=== PATIENT | male | born 1955 | race Caucasian/White ===

== ENCOUNTER 2016-12-12 18:09 | Emergency (ER) | payer MEDICAID ==
[~2016-12-12] VITALS: Ht 182.9 cm; Wt 81.6 kg
[2016-12-12 18:31] LABS: HEMOGLOBIN 14.2 g/dL (14.1-18.0); LYMPH # 3.9 K/mm3 (0.7-4.5); LYMPH % 29.2 % (10-50)
[2016-12-12 18:54] LABS: URINE BILIRUBIN - DIPSTICK NEGATIVE (NEG); URINE BLOOD NEGATIVE (NEG)
--- NOTE | 2016-12-12 18:54 | Emergency Room Report ---
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 N Clinical Suspician of Infection? N Mental Status: 2 - Mildly Altered Sepsis Risk:Low Sepsis Risk Have you (or family members/close friends) recently traveled outside the [place]? N If Yes, where/when: Have you had exposure to infectious disease within the past month? N TB? Other? Specify: 61 years old white male with history of seizure when drinking VODKA. He was sitting at the [facility] AND went back to the house and fell on a couch with seizure -like activity. He he denies trauma and saw girlfriends. He denies any complaint at the present time is alert and oriented to place and person not the day. Source patient, RN notes reviewed, family ALLERGIES Coded Allergies: No Known Allergies (12/12/16) History Medical History Immunization Hx DT/Tetanus Unknown Surgical Hx Previous Surgery?N Social History Smoking Hx Smoker: Current Every Day Smoker Tobacco: Yes Type Cigarettes Alcohol Alcohol: Yes Review of Systems All Other Systems Reviewed and Negative Constitutional no symptoms reported Eyes no symptoms reported ENT no symptoms reported. Respiratory no symptoms reported Cardiovascular no symptoms reported Gastrointestinal no symptoms reported Genitourinary no symptoms reported. Musculoskeletal no symptoms reported Skin no symptoms reported Psychiatric/Neurological see HPI, seizure Physical Exam Vital Signs Vital Signs Date Time Temp Pulse Resp B/P Pulse O2 O2 Flow FiO2 Ox Delivery Rate 12/12 1918 102 28 143/88 95 12/12 1811 97.0 67 18 149/67 97 - WBC >12,000 or <4,000 or 10% bands? 2 or more SIRS Criteria Met? B/P:149/67 MAP:94 Creatinine >2.0? UA output<0.5ml/kg/hr for 2 hrs? Platelet count >100,000? Lactate >2.0mmol/1? INR >1.2 or PTT > than 60 sec? Evidence of Organ Dysfunction? Provider documented clinical suspician of infection? N Sepsis Criteria Count: 0 Sepsis Risk: Low Sepsis Risk General Appearance normal appearance, WD/WN Eye Exam - bilateral eye normal exam, bilateral eye PERRL, bilateral eye EOMI Ear, Nose, Throat hearing grossly normal, normal ENT inspection Neck normal inspection, non-tender, supple, full range of motion Respiratory Status Yes: trachea midline, chest symmetrical, non tender chest. No: respiratory distress. Lung Sounds bilateral: normal breath sounds, lungs clear. 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 No Results/Orders Laboratory Tests 12/12/16 1835: Opiates Screen NEGATIVE, Urine Methadone Screen NEGATIVE, Barbiturates NEGATIVE, Phencyclidine Screen NEGATIVE, Amphetamines Screen NEGATIVE, Benzodiazepines Screen NEGATIVE, Cocaine Screen NEGATIVE, Marijuana (THC) Screen NEGATIVE, Urine Color YELLOW, Urine Appearance CLEAR, Urine pH 6.5, Ur Specific [place] 1.015, Urine Protein TRACE H, Urine Ketones TRACE H, Urine Blood NEGATIVE, Urine Nitrate NEGATIVE, Urine Bilirubin NEGATIVE, Urine Urobilinogen 1.0, Ur Leukocyte Esterase NEGATIVE, Urine WBC 3-5, Amorphous Sediment 1+, Urine Mucus TRACE, Urine Glucose NEGATIVE 12/12/161809: Magnesium 2.3 H 12/12/161809: Folate Pending, Alcohols 37 12/12/161809: Sodium 126 L, Potassium 3.5, Chloride 90 L, Carbon Dioxide 20 L, BUN 6 L, Creatinine 0.8, Estimated Creat Clear 109, Estimated GFR (MDRD) 98, Glucose 94, Calcium 9.1, Total Bilirubin 0.6, AST 65 H, ALT 26, Alkaline Phosphatase 171 H , Creatine Kinase 80, CK-MB (CK-2) Rel Index 0.8, CK and CKMB Interp 0.6, Troponin I < 0.02, Total Protein 8.0, Albumin 3.5, Globulin 4.5 H, Albumin/ Globulin Ratio 0.8 L, WBC 13.3 H, RBC 4.19 L, Hgb 14.2, Hct 42.9, MCV 102.3 H, RDW 13.4, Plt Count 410, MPV 7.4, Gran % 58.3, Gran # 7.7, Lymphocytes % 29.2 , Monocytes % 10.0 H, Eosinophils % 1.5, Basophils % 1.0, Lymphocytes # 3.9, Monocytes # 1.3 H, Eosinophils # 0.2, Basophils # 0.1, PUBS MCHC 33.2, MCH 34.0 H, Salicylates 3.9, Acetaminophen 0 L Current Medication Orders Sig/Keith Start time Last Medication Dose Route Stop Time Status Admin Miscellaneous 0 .STK-MED ONE 12/12 1949 DC Medication XX Sodium Chloride 1,000 ML .STK-MED ONE 12/12 1949 DC IV Folic Acid 1 MG ONCE ONE 12/12 1944 DC 12/12 PO 12/12 Miscellaneous 1 UNIT ONCE ONE 12/12 1944 DC 12/12 Medication XX 12/12 Multivitamins 10 ML .Q6H42M 12/12 1944 AC 12/12 Magnesium Sulfate 2 GM IV 12/13 Thiamine HCl 100 MG Lactated Ringer's 1,000 ML Sodium Chloride 10 ML PRN PRN 12/12 1829 AC IV 12/13 1818 Orders Procedure Date/time Status DIET-NOTHING BY MOUTH 12/13 B Active CHEST(2 VIEWS-NOT PORTABLE) 12/12 194 Active SALICYLATE 12/12 1826 Complete MAGNESIUM 12/12 1826 Complete FOLIC ACID (FOLATE, SERUM) 12/12 1826 Active Acetaminophen 12/12 1826 Complete ELECTROCARDIOGRAM REQUEST 12/[address] HEAD REQ 12/12 1821 Complete IV SALINE LOCK 12/12 1821 Active URINALYSIS/COMPLETE 12/12 1821 Complete DRUG ABUSE SCREEN (TRIAGE) 12/12 1821 Complete CBC WITH AUTO DIFF 12/12 1821 Complete CARDIAC ENZYMES 12/12 1821 Complete CHEM 12 PROFILE 12/12 1821 Complete ALCOHOL 12/12 1821 Complete 12 LEAD EKG-DAVE (INITIAL) 12/12 UNK Active CM/EKG CM/EKG EKG rate (sinus tachycardia at 113. [place]), sinus tachycardia 1 1330 minutes unifocal PVC is no acute XRAY/CT/US XRAY/CT/US XRAY chest XR interpretation by reviewed by me Xray Results COPD NO ACUTE. Departure Departure Time of Disposition 1931 Disposition Against Medical Advice Clinical Impression Primary Impression: Seizure-like activity Secondary Impressions: Alcohol abuse, Cerebral atrophy, Hyponatremia, Left against medical advice, Leucocytosis, Mastoiditis Condition STABLE Additional Instructions The patient cliamed to be a [employer] but refused to call [place] for admission. His daughter called and told us not to take his beer away,[facility] does not serve beer. I offered him to be admitted for more IVF and further testing but the patient declined , his girl friend kota will co sign AMA form. HE WILL BE GIVEN A PCP LIST FOR HERALTH MAINTENANCE. RETURN IF NEEDED Discharge Counseling Counseled pt/family regarding diagnosis, test results, home care, follow up needs ED Critical Care Critical Care No If Critical Care minutes are documented, the time involved in the performance of seperately reportable procedures was not counted toward critical care time documented. I directly delivered medical care to this critically ill and/or injured patient. Timely evaluation and treatment was necessary to address the significant organ system(s) dysfunction present in this patient. at 2011
[2016-12-12 18:57] LABS: BUN 6 mg/dL (7-18)
[2016-12-12 18:58] LABS: GFR (ESTIMATED) 98 ML/MIN (>60)
[2016-12-12 19:00] LABS: AMPHETAMINES/METAMPHETAMINES NEGATIVE ng/mL (<1000)
--- NOTE | 2016-12-12 19:17 | RADIOLOGY REPORT PS360 ---
CT HEAD W/O CONTRAST HISTORY: Altered mental status, confusion, altered level consciousness CONFUSION ORDERING PHYSICIAN: Shiva Sorensen MD PATIENT AGE: 61 years COMPARISON: None TECHNIQUE: Axial images obtained without contrast. Brain and bone windows reviewed. FINDINGS: No midline shift, mass effect, intracranial hemorrhage, hydrocephalus, or extra-axial fluid collection is evident. There is generalized atrophy with periventricular ischemic gliotic changes. The calvarium has an unremarkable appearance. Small amount fluid in left mastoid sinus.. The visualized paranasal sinuses are unremarkable. IMPRESSION: 1. No acute finding. 2. Mild left mastoid sinus disease
[2016-12-12 21:58] VITALS: BP 130/91
--- NOTE | 2016-12-13 06:28 | RADIOLOGY REPORT PS360 ---
CHEST(2 VIEWS-NOT PORTABLE) HISTORY: leucocytosis ORDERING PHYSICIAN: Shiva Sorensen MD PATIENT AGE: 61 years COMPARISON: None available FINDINGS: The cardiomediastinal silhouette and pulmonary vascularity are within normal limits. The lungs are clear without infiltrates, suspicious nodules, or pleural effusions. No acute bony abnormalities. Calcified granulomas are present in the left upper lobe. There is mild left apical pleural thickening IMPRESSION: No acute finding
== END 2016-12-12 22:02 | disposition left against medical advice (07) ==
LOC: ER 18:09 → EDBD 18:42 → ER 22:02
PROVIDERS: Emergency Medicine
DX: R56.9 Unspecified convulsions (principal); F10.10 Alcohol abuse, uncomplicated; G31.9 Degenerative disease of nervous system, unspecified; E87.1 Hypo-osmolality and hyponatremia; D72.829 Elevated white blood cell count, unspecified; H70.90 Unspecified mastoiditis, unspecified ear; Z53.21 Procedure and treatment not carried out due to patient leaving prior to being seen by health care provider; F17.210 Nicotine dependence, cigarettes, uncomplicated

== ENCOUNTER 2016-12-18 06:49 | Emergency (ER) | payer MEDICAID ==
[~2016-12-18] VITALS: Ht 182.9 cm; Wt 54.4 kg
[2016-12-18 07:30] LABS: HEMOGLOBIN 13.8 g/dL (14.1-18.0); LYMPH # 1.8 K/mm3 (0.7-4.5); LYMPH % 19.8 % (10-50)
--- NOTE | 2016-12-18 07:51 | Emergency Room Report ---
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 PT IS REPORTED TO BE AN ALCOHOLIC, AND HAS NOT HAD ANYTHING TO DRINK FOR 2-3 DAYS. EMS REPORTS PT HAD A EPISODE OF "EYES ROLLING BACK" BUT NO WITNESSED SZ ACTIVITY FROM THEM. 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 N Clinical Suspician of Infection? N Mental Status: 3 - Acutely Altered Sepsis Risk:Low Sepsis Risk Have you (or family members/close friends) recently traveled outside the [place]? N If Yes, where/when: Have you had exposure to infectious disease within the past month? N TB? Other? Specify: Comment History obtained from the patient's girlfriend. He had 3 seizures today starting at 3 AM. He is currently confused, likely postictal. He is a daily drinker. He was here for the same thing on 12/13/15. He refused admission and signed out AGAINST MEDICAL ADVICE. He refused admission here as well as the [facility]. Girlfriend states that he gradually stop drinking after last emergency department visit and has not drank for 3 days until he had a half of beer last night. No trauma. Girlfriend states no drug use. She states he does have a prior history of seizures from drinking. He is not on any seizure medications and is not on any other medications. 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 PT IS REPORTED TO BE AN ALCOHOLIC, AND HAS NOT HAD ANYTHING TO DRINK FOR 2-3 DAYS. EMS REPORTS PT HAD A EPISODE OF "EYES ROLLING BACK" BUT NO WITNESSED SZ ACTIVITY FROM THEM. 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 N Clinical Suspician of Infection? N Mental Status: 3 - Acutely Altered Sepsis Risk:Low Sepsis Risk Have you (or family members/close friends) recently traveled outside the [place]? N If Yes, where/when: Have you had exposure to infectious disease within the past month? N TB? Other? Specify: (Kymberly Chang MD) History Medical History General CAD? No Angina: No CT: No Hypertension? No Hyperlipidemia? No CHF? No DVT? No PE? No COPD? No Asthma? No Anemia? No GERD? No Gastric ulcers? No GI Bleed? No Hernia? No Thyroid Problems? No Hypothyroidism? No CVA? No Seizures? Yes Renal Insuffiency? No End Stage Renal Disease? No UTI? No Stones? No BPH? No GB Disease: No Nephritic Syndrome? No Asplenia? No Hepatitis? No Sickle Cell Disease? No Arthritis? No Migraines? No Cataracts? No Glaucoma? No MRSA? No HIV? No TB? No Anxiety? No Depression? No Cancer? No More? Yes Additional hx: UNABLE TO ASSESS D/T CONFUSION - NO FAMILY PRESENT. FAMILY DID TELL EMS PT HAS A HX OF ETOH ABUSE Immunization Hx DT/Tetanus Unknown Surgical Hx Previous Surgery?Y METAL PLATES IN HEAD "CLAMPS" ON LIVER Social History Smoking Hx Smoker: Current Every Day Smoker Tobacco: Yes Type Cigarettes Alcohol Alcohol: Yes (Franklyn Avery MD) Medical History Surgical Hx Previous Surgery?Y METAL PLATES IN HEAD "CLAMPS" ON LIVER (Kymberly Chang MD) Review of Systems All Other Systems Reviewed and Negative (unobtainable, AMS) (Franklyn Avery MD) All Other Systems Reviewed and Negative Psychiatric/Neurological see HPI (Kymberly Chang MD) Physical Exam Vital Signs Vital Signs Date Time Temp Pulse Resp B/P Pulse O2 O2 Flow FiO2 Ox Delivery Rate 12/18 0900 89 20 130/91 93 12/18 0754 18 12/18 0743 96 18 150/86 98 12/18 0651 97.3 107 15 150/91 96 General Appearance no apparent distress, thin, confused, oriented to person and place only Eye Exam - bilateral eye normal exam, bilateral eye PERRL, bilateral eye EOMI Ear, Nose, Throat hearing grossly normal, normal ENT inspection Neck normal inspection, non-tender, supple, full range of motion Respiratory Status Yes: trachea midline, chest symmetrical, non tender chest. No: respiratory distress. Lung Sounds bilateral: normal breath sounds, lungs clear. 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 Yes Deon was queried for this patient? No Reason not queried - emergent pt cond=no time Results/Orders Laboratory Tests 12/18/16 0722: Magnesium 1.7 12/18/16 0722: Sodium 126 L, Potassium 3.4 L, Chloride 88 L, Carbon Dioxide 28, BUN 8, Creatinine 0.7 L, Estimated Creat Clear 83, Estimated GFR (MDRD) 114, Glucose 109 H, Calcium 9.3, Total Bilirubin 0.7, AST 55 H, ALT 23, Alkaline Phosphatase 134 H, Creatine Kinase 54, CK-MB (CK-2) Rel Index 0.9, CK and CKMB Interp < 0.5, Troponin I < 0.02, Total Protein 7.4, Albumin 3.3 L, Globulin 4.1 H, Albumin/Globulin Ratio 0.8 L, WBC 9.3, RBC 4.06 L, Hgb 13.8 L, Hct 40.1 L, MCV 98.8 H, RDW 13.3, Plt Count 417, MPV 7.3 L, Gran % 66.0, Gran # 6.1, Lymphocytes % 19.8, Monocytes % 12.5 H, Eosinophils % 1.2, Basophils % 0.6, Lymphocytes # 1.8, Monocytes # 1.2 H, Eosinophils # 0.1, Basophils # 0.1, PUBS MCHC 34.4, MCH 34.0 H, Alcohols 0 Current Medication Orders Sig/Keith Start time Last Medication Dose Route Stop Time Status Admin Lactated Ringer's 1,000 ML .STK-MED ONE 12/18 08 DC IV Miscellaneous 0 .STK-MED ONE 12/18 08 DC Medication XX Folic Acid 1 MG ONCE ONE 12/19 799 DC 12/18 PO 12/18 800 0814 Lorazepam 1 MG ONCE ONE 12/19 799 DC 12/18 IV 12/18 08 0754 Miscellaneous 1 UNIT ONCE ONE 12/19 799 DC 12/18 Medication XX 12/18 800 0814 Multivitamins 10 ML .Q6H42M 12/18 08 AC 12/18 Magnesium Sulfate 2 GM IV 12/18 1441 0814 Thiamine HCl 100 MG Lactated Ringer's 1,000 ML Lorazepam 0 .STK-MED ONE 12/18 0753 DC .ROUTE Sodium Chloride 1,000 ML .STK-MED ONE 12/18 0748 DC IV Sodium Chloride 1,000 ML .Q1H1M 12/18 07 DC 12/18 IV 12/18 08 0748 Sodium Chloride 10 ML PRN PRN 12/18 0715 AC IV 12/19 0702 Sodium Chloride 10 ML PRN PRN 12/18 0700 AC IV 12/19 0658 Orders Procedure Date/time Status DIET-NOTHING BY MOUTH 12/18 B Active MAGNESIUM 12/[address] HEAD REQ 12/18 06 Complete IV SALINE LOCK 12/18 06 Active CBC WITH AUTO DIFF 12/18 657 Complete CARDIAC ENZYMES 12/18 657 Complete CHEM 12 PROFILE 12/18 657 Complete ALCOHOL 12/18 657 Complete Progress - 8:00 AM: At shift change, I have discussed the patient with Dr. Chang, who will assume care of the patient at this time. I have discussed all clinical information including history, physical and diagnostic study results. Preliminary diagnoses based on information available at this point have been recorded by me. (RenuscFranklyn oglesby MD) LABS/Meds/Orders Pt receiving controlled substance in ED? Yes Deon was queried for this patient? Yes Reference #: [id number] Risks/benefits of using a controlled substance for treatment were discussed w/pt by me XRAY/CT/US XRAY/CT/US CT head CT interpretation by reviewed by me, discussed w/radiologist (t/c from radiology neg acute) Time results known: 0800 CT Results normal/NAD (atrophy but neg acute per rad.) Progress ED Progress Notes Date 12/18/16 Time 0843 Comment change of shift at 0800: patient is receiving rally pack IV, and is somnolent s/ p Ativan IV. I am able to wake him up and he can look at me and follow commands, then goes back to sleep, states he does not want to stay in the hospital as an admission. He will be kept here for rally pack IV but does not accept recommendation for admission; departing AMA. I have reviewed valium taper with him and he's willing to taper valium outpatient and stop ETOH consumption. He is not suicidal or hallucinating. Speech clear and fluent. GCS is 4/6/5. (Kymberly Chang MD) Departure Departure Condition STABLE ED Critical Care Critical Care No (Franklyn Avery MD) Departure Time of Disposition 09 Disposition Against Medical Advice Clinical Impression Primary Impression: Alcohol withdrawal seizure Qualifiers: Complication of substance-induced condition: uncomplicated Qualified Code: F10.230 - Alcohol dependence with withdrawal, uncomplicated Secondary Impressions: Alcohol abuse Patient Instructions DI for Alcohol Abuse Additional Instructions Valium taper as directed while staying off alcohol; we have recommended admission for safer detox and you have refused. Follow up with family doctor of choice, see list provided. Recommend daily multivitamin and AA meetings. Family to follow up with Mauri Hawkins. Discharge Counseling Counseled pt/family regarding diagnosis, test results, R/B of controlled subst., medications/RX, home care, follow up needs Prescriptions Current Visit Scripts Diazepam (Valium 10MG) 10 MG PO TIDP PRN tremors #7 TAB Take one tablet by mouth three times a day x one day, two times a day x one day, then once daily for two days. ED Critical Care Critical Care No (Kymberly Chang MD) at 0757
[2016-12-18 07:56] LABS: BUN 8 mg/dL (7-18)
--- NOTE | 2016-12-18 07:57 | RADIOLOGY REPORT PS360 ---
CT HEAD W/O CONTRAST COMPARISON: CT scan of brain 12/12/2016 HISTORY: Possible seizure activity, mental confusion TECHNIQUE: Multiaxial scans obtained from base skull to the vertex and were performed without IV contrast. FINDINGS: The base of skull appears grossly normal, again noted is a small amount of fluid left mastoids. The basilar cisterns are prominent. The ventricular system is normal for age. The sylvian fissures and cortical sulci are prominent somewhat more than expected for the patient's age. Again noted are mild bilateral periventricular ischemic gliotic white matter changes. There is no bleed and is no extra-axial fluid collections. Bony calvarium appears intact. IMPRESSION: Findings of moderate cortical atrophy somewhat more prominent than expected for the patient's age, no acute intracranial pathology noted.
[2016-12-18 07:59] LABS: GFR (ESTIMATED) 114 ML/MIN (>60)
[2016-12-18] MEDS ORDERED: VALIUM 10MG TAB10 MG PO (09:06)
[2016-12-18 10:13] VITALS: BP 146/93
== END 2016-12-18 10:13 | disposition left against medical advice (07) ==
LOC: ER 06:49 → EDBD 06:59 → ER 06:59
PROVIDERS: Emergency Medicine
DX: F10.230 Alcohol dependence with withdrawal, uncomplicated (principal); F17.210 Nicotine dependence, cigarettes, uncomplicated

== ENCOUNTER 2016-12-25 10:20 | Emergency (ER) | payer MEDICAID ==
[~2016-12-25] VITALS: Ht 182.9 cm; Wt 56.7 kg
[~2016-12-25 10:20] MED LIST: VALIUM 10MG TAB10 MG PO
[2016-12-25 10:42] LABS: LYMPH # 2.3 K/mm3 (0.7-4.5); LYMPH % 17.1 % (10-50)
[2016-12-25 11:13] LABS: HEMOGLOBIN 15.3 g/dL (14.1-18.0)
--- NOTE | 2016-12-25 11:23 | Emergency Room Report ---
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 N Clinical Suspician of Infection? N Mental Status: 1 - Regular (Normal Baseline) Sepsis Risk:Low Sepsis Risk Have you (or family members/close friends) recently traveled outside the [place]? N If Yes, where/when: Have you had exposure to infectious disease within the past month? TB? Other? Specify: 61 years old white male well-known to me from prior visits with alcohol lives in an hyponatremia. 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 By his girlfriend he has not consumed any alcohol for the past week, spell at this morning because of 2-3 days of weakness. There are no falls or LOC. He denies chest pain shortness of breath palpitations or chills dysuria. Source patient, RN notes reviewed, family, old records Exam Limitations no limitations ALLERGIES Coded Allergies: No Known Allergies (12/12/16) Home Medications Active Scripts Diazepam (Valium 10MG) 10 MG PO TIDP PRN tremors #7 TAB Prov: 12/18/16 History Medical History General CAD? No Angina: No NM: No Hypertension? No Hyperlipidemia? No CHF? No DVT? No PE? No COPD? No Asthma? No Anemia? No GERD? No Gastric ulcers? No GI Bleed? No Hernia? No Thyroid Problems? No Hypothyroidism? No CVA? No Seizures? Yes Renal Insuffiency? No End Stage Renal Disease? No UTI? No Stones? No BPH? No GB Disease: No Nephritic Syndrome? No Asplenia? No Hepatitis? No Sickle Cell Disease? No Arthritis? No Migraines? No Cataracts? No Glaucoma? No MRSA? No HIV? No TB? No Anxiety? No Depression? No Cancer? No More? Yes Additional hx: UNABLE TO ASSESS D/T CONFUSION - NO FAMILY PRESENT. FAMILY DID TELL EMS PT HAS A HX OF ETOH ABUSE Immunization Hx Ped.Immunizations UTD Yes DT/Tetanus Unknown Surgical Hx Previous Surgery?Y METAL PLATES IN HEAD "CLAMPS" ON LIVER Social History Smoking Hx Smoker: Never Smoker Tobacco: No Type N/A Are you/the child exposed to second-hand smoke: No Alcohol Alcohol: Yes Review of Systems All Other Systems Reviewed and Negative Constitutional weakness Eyes no symptoms reported ENT no symptoms reported. Respiratory no symptoms reported Cardiovascular no symptoms reported Gastrointestinal no symptoms reported Genitourinary no symptoms reported. Musculoskeletal no symptoms reported Skin no symptoms reported Psychiatric/Neurological no symptoms reported Physical Exam Vital Signs Vital Signs Date Time Temp Pulse Resp B/P Pulse O2 O2 Flow FiO2 Ox Delivery Rate 12/25 1345 98.3 105 18 151/107 98 15 12/25 1318 105 18 151/107 98 12/25 1246 100 18 158/105 100 15 12/25 1216 119 18 167/108 100 15 12/25 1133 115 18 165/115 98 12/25 1044 115 18 162/117 98 12/25 1020 98.3 117 18 179/116 98 General Appearance normal appearance, WD/WN Eye Exam - bilateral eye normal exam, bilateral eye PERRL, bilateral eye EOMI Ear, Nose, Throat hearing grossly normal, normal ENT inspection Neck normal inspection, non-tender, supple, full range of motion Respiratory Status Yes: trachea midline, chest symmetrical, non tender chest. No: respiratory distress. Lung Sounds bilateral: normal breath sounds, lungs clear. 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 No Results/Orders Laboratory Tests 12/25/16 1145: ABG pH 7.48 H, ABG pCO2 (Temp Corrct 36.9, ABG pO2 (Temp Correct 81.4, ABG HCO3 27.1 H, ABG Total CO2 28.2 H, ABG O2 Sat (Calculated) 96.0, ABG Base Excess 3.7 H, Daniel Test PATIENT UNABLE, Blood Gas Comments RIGHT RADIAL 12/25/16 1030: Troponin I < 0.02 12/25/16 1030: Vitamin B12 Pending, Folate Pending 12/25/16 1030: Sodium 139, Potassium 3.2 L, Chloride 100, Carbon Dioxide 35 H, BUN 17, Creatinine 0.9, Estimated Creat Clear 67, Estimated GFR (MDRD) 85, Glucose 96, Calcium 9.9, Magnesium 1.9, Total Bilirubin 0.7, AST 56 H, ALT 20, Alkaline Phosphatase 131 H, Total Protein 8.1, Albumin 3.5, Globulin 4.6 H, Albumin/ Globulin Ratio 0.8 L, WBC 13.3 H, RBC 4.44 L, Hgb 15.3, Hct 45.1, MCV 101.5 H, RDW 12.9, Plt Count 554 H, MPV 7.5, Gran % 71.0, Gran # 9.4 H, Lymphocytes % 17.1, Monocytes % 8.7, Eosinophils % 1.6, Basophils % 1.6, Lymphocytes # 2.3, Monocytes # 1.2 H, Eosinophils # 0.2, Basophils # 0.2, PUBS MCHC 33.8, MCH 34.3 H, Salicylates 1.5 L, Acetaminophen 0 L, Alcohols 0 12/25/16 1023: Opiates Screen Cancelled, Urine Methadone Screen Cancelled, Barbiturates Cancelled, Phencyclidine Screen Cancelled, Amphetamines Screen Cancelled, Benzodiazepines Screen Cancelled, Cocaine Screen Cancelled, Marijuana (THC) Screen Cancelled, Urine Color Cancelled, Urine Appearance Cancelled, Urine pH Cancelled, Ur Specific Sarona Cancelled Current Medication Orders Sig/Keith Start time Last Medication Dose Route Stop Time Status Admin Levetiracetam 1,000 MG ONCE ONE 12/25 1230 DC 12/25 Sodium Chloride 100 ML IV 12/25 1244 1316 Thiamine HCl 500 MG ONCE ONE 12/25 1230 DC 12/25 Sodium Chloride 250 ML IV 12/25 1329 1317 Labetalol HCl 0 .STK-MED ONE 12/25 1223 DC IV Miscellaneous 0 .STK-MED ONE 12/25 1223 DC Medication XX Thiamine HCl 0 .STK-MED ONE 12/25 1218 DC .ROUTE Levetiracetam 0 .STK-MED ONE 12/25 1217 DC IV Aspirin 325 MG ONCE ONE 12/25 1215 DC PO 12/25 1216 Labetalol HCl 2.5 MG ONCE ONE 12/25 1215 DC 12/25 IV 12/25 1216 1242 Pantoprazole Sodium 40 MG ONCE ONE 12/25 1215 DC 12/25 IV 12/25 1216 1316 Sodium Chloride 10 ML ONCE ONE 12/25 1215 DC IV 12/25 1216 Lorazepam 0 .STK-MED ONE 12/25 1208 DC .ROUTE Folic Acid 1 MG ONCE ONE 12/25 1130 DC 12/25 PO 12/25 1131 1242 Miscellaneous 1 UNIT ONCE ONE 12/25 1130 DC 12/25 Medication XX 12/25 1131 1316 Multivitamins 10 ML .[id number] 12/25 1130 DCD 12/25 Magnesium Sulfate 2 GM IV 12/25 1811 1241 Thiamine HCl 100 MG Lactated Ringer's 1,000 ML Potassium Chloride 20 MEQ ONCE ONE 12/25 1130 DC 12/25 PO 12/25 1131 1315 Sodium Chloride 10 ML PRN PRN 12/25 1045 DCD IV 12/26 1039 Orders Procedure Date/time Status DIET-NOTHING BY MOUTH 12/25 L Active TROPONIN I 12/25 1102 Complete 12 LEAD EKG-DAVE (INITIAL) 12/25 1040 Active ELECTROCARDIOGRAM REQUEST 12/25 1040 Active IV SALINE LOCK 12/[address] HEAD W/O CONTRAST 12/25 1026 Active ARTERIAL BLOOD GAS REQUEST 12/[address] HEAD REQ 12/25 1023 Complete SALICYLATE 12/25 1023 Complete MAGNESIUM 12/25 1023 Complete FOLIC ACID (FOLATE, SERUM) 12/25 1023 Active CBC WITH AUTO DIFF 12/25 1023 Complete CHEM 12 PROFILE 12/25 1023 Complete VITAMIN B12 12/25 1023 Active ALCOHOL 12/25 1023 Complete Acetaminophen 12/25 1023 Complete CM/EKG CM/EKG EKG sinus tachycardia 118/minutes, with baseline artifact, unifocal pvcs , no acute. XRAY/CT/US XRAY/CT/US XRAY chest XR interpretation by reviewed by me, discussed w/radiologist Xray Results left effusion with granuloma no acute. Departure Departure Time of Disposition 1158 Disposition DC/XFER from ER to [facility] Clinical Impression Primary Impression: CVA (cerebral vascular accident) Secondary Impressions: Alcoholism, Cerebral edema Condition STABLE Referrals [facility] Additional Instructions 1130 I received a call from lala glez for a vasogenic edema of the ct scan. His CXR was negative sodiumhas corrected and alcohol was negative. I spoke with Dr Puentes who reviewed the old scan and agreed with lala glez. He recommended an MRI which [facility] does not have on the weekends. 12:[address] Betancourt stroke attending at [facility] who believed that it is most likely ashley a subacute stroke and recommended BP control, aspirinand transfere. I discussed with the family and they agreeable for transfer. Prior to transfer the patient underwent generalized seizure that lasted for 40 seconds postictal he had an upward gaze to the RIGHT temporal region. I gave him 1 mg of Ativan, 2.5 mg IVP labetalol, and contacted Dr. Betancourt again advised time and 500 mg IV and 1000 mg of Keppra loading dose. He advised to transfer the patient by helicopter. Oliver's blood pressure was decreased to 150/100 mmhg , sat was 100% with oxygen supplement and his heart rate was 100-110 minutes. He was in no respiratory distress and maintained open airway. Dr. Sorensen Discharge Counseling Counseled pt/family regarding diagnosis, test results, medications/RX, home care, follow up needs ED Critical Care Critical Care No If Critical Care minutes are documented, the time involved in the performance of seperately reportable procedures was not counted toward critical care time documented. I directly delivered medical care to this critically ill and/or injured patient. Timely evaluation and treatment was necessary to address the significant organ system(s) dysfunction present in this patient.
--- NOTE | 2016-12-25 11:40 | RADIOLOGY REPORT PS360 ---
CHEST-AP VIEW ONLY HISTORY: Altered mental status, confusion, altered level consciousness ams ORDERING PHYSICIAN: Shiva Sorensen MD PATIENT AGE: 61 years COMPARISON: 12/12/2016 FINDINGS: The cardiomediastinal silhouette and pulmonary vascularity are within normal limits. No lobar consolidation or collapse. There is evidence of old granulomatous disease. Calcified granulomas are present in the left upper and left lower lobe. There is a small left pleural effusion. IMPRESSION: Small left pleural effusion with old granulomatous disease
[2016-12-25 11:59] LABS: ARTERIAL ABE 3.7 MMOL/L (-2.4-+2.3); ARTERIAL PO2 81.4 MMHG (80-100); ARTERIAL TCO2 28.2 MMOL/L (23-27)
[2016-12-25 12:00] LABS: ALLEN'S TEST PATIENT UNABLE; OXYGEN RO0M AIR
[2016-12-25 13:45] VITALS: BP 151/107
--- NOTE | 2016-12-26 17:15 | RADIOLOGY REPORT PS360 ---
CT HEAD W/O CONTRAST HISTORY: Altered mental status, altered level of consciousness, confusion AMS ORDERING PHYSICIAN: Shiva Sorensen MD PATIENT AGE: 61 years COMPARISON: 12/18/2016 TECHNIQUE: Axial images obtained without contrast. Brain and bone windows reviewed. FINDINGS: Low density changes have developed in the left posterior parietal lobe and occipital lobe within the white matter consistent with underlying edema. This has increased since 12/18/2016. Underlying mass is a consideration. Infarction is also considered. Suggest repeat exam with contrast. No acute intracranial hemorrhage. No midline shift. Periventricular ischemic gliotic changes are present with atrophy. IMPRESSION: Low density changes within white matter of the left parietal and occipital lobe consistent with underlying mass. MRI without and with contrast recommended for further evaluation. Alternatively, repeat CT with IV contrast may be of further value as well
[2016-12-28 05:38] LABS: Folate (Folic Acid) 15.5 ng/mL (>3.0)
== END 2016-12-25 14:03 | disposition short-term general hospital (02) ==
LOC: ER 10:20
PROVIDERS: Emergency Medicine
DX: I63.9 Cerebral infarction, unspecified (principal); F10.20 Alcohol dependence, uncomplicated; R56.9 Unspecified convulsions
CPT/HCPCS: J1953